=== PATIENT | male | born 1990 | race African-American/Black ===

== ENCOUNTER 2016-09-04 00:49 | Emergency (ER) | payer OTHER ==
--- NOTE | 2016-09-04 01:14 | PDOC ---
History of Present Illness - General History Source: Patient Exam Limitations: No Limitations - History of Present Illness Initial Comments: 09/04/16 01:23 The patient is a 25 year old male with no significant past medical history who presents to the ED for less than 24 hours of SOB. Patient reports he developed SOB with dry cough, sore throat, body aches, and chest pain upon deep inspiration yesterday morning. Admits to smoking ppd. Denies lightheadedness, diaphoresis, jaw pain, shoulder pain, arm pain, nausea, or vomiting. Denies any recent travels or sick contacts. The patient denies fever, chills, abdominal pain, and diarrhea. Allergies: NKDA Social History: current smoker (ppd), social etoh use, marijuana use Past Surgical History: none reported PCP: none reported <Vanna Ware - Last Filed: 09/04/16 01:23> - General History Source: Patient <Abhishek Lakhani - Last Filed: 09/04/16 06:12> - General Stated Complaint: BODY ACHES,DIFFICULTY BREATHING Time Seen by Provider: 09/04/16 01:14 Past History <Vanna Ware - Last Filed: 09/04/16 01:23> - Past Medical History Anemia: No Asthma: No Cancer: No Cardiac Disorders: No CVA: No COPD: No CHF: No Dementia: No Diabetes: No GI Disorders: No Disorders: No HTN: No Hypercholesterolemia: Yes Liver Disease: No Seizures: No Thyroid Disease: No - Surgical History Abdominal Surgery: No Appendectomy: No Cardiac Surgery: No Cholecystectomy: No Lung Surgery: No Neurologic Surgery: No Orthopedic Surgery: No - Immunization History Immunization Up to Date: Yes - Psycho/Social/Smoking Cessation Hx Anxiety: No Suicidal Ideation: No Smoking History: Former smoker Have you smoked in the past 12 months: Yes If you are a former smoker, when did you quit?: 12/19/13 'Breaking Loose' booklet given: 03/30/14 Hx Alcohol Use: Yes (SOCIAL) Drug/Substance Use Hx: Yes (MARIJUANA) Substance Use Type: Alcohol, Marijuana Hx Substance Use Treatment: No <Abhishek Lakhani - Last Filed: 09/04/16 06:12> - Past Medical History Allergies/Adverse Reactions: Allergies Allergy/AdvReac Type Severity Reaction Status Date / Time No Known Drug Allergies Allergy Verified 09/04/16 01:25 Home Medications: Ambulatory Orders Amox-Tr/K Cl [Augmentin 875Mg Tablet] 1 tab PO BID #20 tablet 09/04/16 Ibuprofen 800 mg PO TID #30 tablet 09/04/16 Methylprednisolone [Medrol Dose Rufus] 4 mg PO ASDIR #21 tablet 09/04/16 Review of Systems - Review of Systems Able to Perform ROS?: Yes Comments:: 09/04/16 01:23 CONSTITUTIONAL: Absent: fever, no chills, no fatigue EYES: Absent: visual changes ENT: +sore throat Absent: ear pain CARDIOVASCULAR: +chest pain Absent: no palpitations RESPIRATORY: +cough, SOB GI: Absent: abdominal pain, no nausea, no vomiting, no constipation, no diarrhea GENITOURINARY: Absent: dysuria, no frequency, no hematuria MUSCULOSKELETAL: +body aches Absent: back pain, no arthralgia SKIN: Absent: rash NEURO: Absent: headache <Vanna Ware - Last Filed: 09/04/16 01:23> *Physical Exam - Physical Exam Comments: 09/04/16 01:23 GENERAL: Well-appearing, well-nourished. Moderate distress. HEENT: Normocephalic, atraumatic. PERRL, EOM intact. CARDIOVASCULAR: Normal S1, S2. Regular rate and rhythm. PULMONARY: Moderate respiratory distress. Moderate decreased breath sounds. Conversational dyspnea. No retractions. No wheezing, rales, or rhonchi. ABDOMEN: Soft, non-distended, non-tender. EXTREMITIES: Normal ROM in all four extremities. No gross deformities. SKIN: Warm, dry. No rash NEUROLOGICAL: No focal neurological deficits. <Vanna Ware - Last Filed: 09/04/16 01:23> ED Treatment Course - LABORATORY CBC & Chemistry Diagram: 09/04/16 01:30 09/04/16 01:30 <Abhishek Lakhani - Last Filed: 09/04/16 06:12> Medical Decision Making - Medical Decision Making 09/04/16 06:10 Dr. Lakhani: The scribe's documentation has been prepared under my direction and personally reviewed by me in its entirery. I confirm that the note above accurately reflects all work, treatment, procedures, and medical decision making performed by me. <Abhishek Lakhani - Last Filed: 09/04/16 06:12> *DC/Admit/Observation/Transfer - Attestations Scribe Attestion: 09/04/16 01:24 Documentation prepared by Vanna Ware, acting as medical social consultant for Abhishek Lakhani MD/DO. <Vanna Ware - Last Filed: 09/04/16 01:23> - Discharge Dispostion Admit: No <Abhishek Lakhani - Last Filed: 09/04/16 06:12> Diagnosis at time of Disposition: Bronchitis - Discharge Dispostion Disposition: HOME Condition at time of disposition: Stable - Prescriptions Prescriptions: Amox-Tr/K Cl [Augmentin 875Mg Tablet] 1 tab PO BID #20 tablet Ibuprofen 800 mg PO TID #30 tablet Methylprednisolone [Medrol Dose Rufus] 4 mg PO ASDIR #21 tablet - Referrals Referrals: STAFF,NOT ON [Primary Care Provider] - Devan Milian MD [Staff Physician] - - Patient Instructions Printed Discharge Instructions: DI for Acute Bronchitis Additional Instructions: Pleae take medication as directed. Follow up with your doctor the doctor referred to you here. Avoid smoking anymore. Return in any problems - Post Discharge Activity Work/School Note: Back to Work
[2016-09-04] MEDS ORDERED: methylPREDNISolone NA SUCC 125 MG/2 ML VIAL IVPB ONE (01:15)
[2016-09-04] MEDS ORDERED: ALBUTEROL SO4 2.5/IPRATROPIUM 0.5 INH SOL 3 ML VIAL.NEB. NEB STA (01:15)
[2016-09-04] MEDS ORDERED: MAGNESIUM SULF 50% (8.12 MEQ/2 ML-1 GM VIAL) IVPB ONE (01:15)
[2016-09-04] MEDS ORDERED: SODIUM CHLORIDE 1,000 ML IV STA (01:16)
[2016-09-04] MEDS ORDERED: MAGNESIUM SULF 50% (8.12 MEQ/2 ML-1 GM VIAL) ONE (01:24)
[2016-09-04] MEDS ORDERED: methylPREDNISolone NA SUCC 125 MG/2 ML VIAL ONE (01:25)
[2016-09-04] MEDS ORDERED: ALBUTEROL SO4 2.5/IPRATROPIUM 0.5 INH SOL 3 ML VIAL.NEB. NEB ONE (01:25)
[2016-09-04 01:28] VITALS: BMI 27.2
[2016-09-04 01:45] LABS: BASOPHIL 0.7 % (0-2.0); EOSINOPHIL 0.1 % (0-4.5); MCH 28.5 pg (25.7-33.7); MCHC 32.4 g/dl (32.0-35.9); MEAN CELL VOLUME 87.9 fl (80-96); MEAN PLT VOLUME 8.6 fl (7.5-11.1); NEUTROPHILS 84.2 % (42.8-82.8); PLATELET COUNT 212 K/MM3 (134-434); RDW 12.6 % (11.9-15.9); WHITE BLOOD COUNT 12.4 K/mm3 (4.0-10.0)
[2016-09-04 01:52] LABS: INR 1.18 (0.82-1.09)
[2016-09-04 02:24] LABS: ANION GAP 14 (8-16); CALCIUM 8.9 mg/dL (8.5-10.1); CO2 24 mmol/L (21-32); COCKROFT - GAULT 120.05; CREATININE 1.4 mg/dL (0.7-1.3); GLUCOSE,RANDOM 106 mg/dL (74-106); SGOT/AST 24 U/L (15-37); SGPT/ALT 47 U/L (12-78)
[2016-09-04 02:25] LABS: TROPONIN I < 0.02 ng/ml (0.00-0.05)
[2016-09-04 02:26] LABS: ALK PHOS 76 U/L (45-117); BILIRUBIN,TOTAL 2.9 mg/dL (0.2-1.0); TOT PROT 6.6 g/dl (6.4-8.2)
[2016-09-04] MEDS ORDERED: KETOROLAC TROMETHAMINE 30 MG/1 ML VIAL IVPUSH ONE (02:49)
[2016-09-04] MEDS ORDERED: AZITHROMYCIN 250 MG TABLET (FP) PO STA (02:49)
[2016-09-04] MEDS ORDERED: KETOROLAC TROMETHAMINE 30 MG/1 ML VIAL ONE (02:57)
[2016-09-04] MEDS ORDERED: CEFTRIAXONE 50 ML ONE (02:57)
[2016-09-04] MEDS ORDERED: AZITHROMYCIN 250 MG TABLET (FP) ONE (02:58)
[2016-09-04 06:23] VITALS: BP 108/56; PULSE 64; TEMP 98
== END 2016-09-04 06:28 | disposition home or self-care (01) ==
LOC: JER 00:49
PROC: 3E0F7GC Introduction of Other Therapeutic Substance into Respiratory Tract, Via Natural or Artificial Opening (ICD-10-PCS; principal; 2016-09-04)
PROC: 3E0337Z Introduction of Electrolytic and Water Balance Substance into Peripheral Vein, Percutaneous Approach (ICD-10-PCS; 2016-09-04)
PROC: 3E03329 Introduction of Other Anti-infective into Peripheral Vein, Percutaneous Approach (ICD-10-PCS; 2016-09-04)
PROC: 3E033GC Introduction of Other Therapeutic Substance into Peripheral Vein, Percutaneous Approach (ICD-10-PCS; 2016-09-04)
PROC: 3E0333Z Introduction of Anti-inflammatory into Peripheral Vein, Percutaneous Approach (ICD-10-PCS; 2016-09-04)
PROC: 3E0333Z Introduction of Anti-inflammatory into Peripheral Vein, Percutaneous Approach (ICD-10-PCS; 2016-09-04)
DX: J20.9 Acute bronchitis, unspecified (principal)
CPT/HCPCS: 36415; 71010-TC; 80053; 82550; 82553; 83690; 84484; 85025; 85610; 99282-25